=== PATIENT | female | born 1950 | race Caucasian/White ===

== ENCOUNTER 2020-12-03 23:59 | Emergency (ER) | payer MEDICARE, OTHER ==
[~2020-12-03 23:59] MED LIST: ADVAIR 500-501 EACH INH; ALPRAZOLAM0.5 MG PO; ASPIRIN EC81 MG PO; CATAPRES 0.1MG0.1 MG PO; DALIRESP500 MCG PO; DULERA 200 MCG8.8 GM INH; EFFEXOR XR 150150 MG PO; FLONASE 0.05% N16 GM; HABITROL 21 MG P1 EA TD; IPRAT-ALBUT 0.5-3 ML INH; KENALOG CREAM 015 GM TOP; LEVALBUTER1.25 MG/3 NEB; MEDROL DOSEPAK 24 MG PO; MIRALAX17 GM PO; NEURONTIN 400400 MG PO; NORVASC2.5 MG PO; PREDNISONE 10 M10 MG GT; PREDNISONE 10 M10 MG PO; PREDNISONE10 MG PO; PROTONIX40 MG PO; REQUIP0.5 MG PO; ROPINIROLE HCL1 MG PO; SEROQUEL100 MG PO; SINGULAIR10 MG PO; SPIRIVA18 MCG INH; TOPROL XL 50 MG50 MG PO; TOPROL XL100 MG PO; TRELEGY INH; TYLENOL 325MG325 MG PO; VENTOLIN HFA 66.7 GM INH; VENTOLIN/PROVE0.5 ML INH; VERAMYST10 GM; VIBRAMYCIN100 MG PO; VISTARIL25 MG PO; VITAMIN B-121000 MCG PO; VITAMIN D250000 UNIT PO; ZESTRIL20 MG PO; ZITHROMAX250 MG PO
[2020-12-04 00:45] LABS: HEMOGLOBIN 10.5 gm/dl (12.3-15.3); RED BLOOD COUNT 3.39 M/UL (4.00-5.10); WHITE BLOOD COUNT 6.3 K/UL (4.5-11.0)
[2020-12-04 01:01] LABS: BUN/CREATININE RATIO 28 (0-10)
[2020-12-04] MEDS ORDERED: MEDROL DOSEPAK 24 MG PO (02:50)
== END 2020-12-04 03:04 | disposition home or self-care (01) ==
LOC: ER1 23:59
PROVIDERS: Emergency Medicine
DX: J44.1 Chronic obstructive pulmonary disease with (acute) exacerbation (principal); I11.9 Hypertensive heart disease without heart failure; Z20.822 Contact with and (suspected) exposure to COVID-19; Z79.899 Other long term (current) drug therapy
CPT/HCPCS: 0240U; 71045; 80053; 82550; 82553; 83605; 83690; 84484; 85025; 85610; 85730; 93005; 94640; 94664; 94760; 96374; 99284; J2930

== ENCOUNTER 2021-11-26 16:46 | Inpatient (IN) | payer MEDICARE, OTHER ==
[~2021-11-26] VITALS: Ht 167.6 cm; Wt 55.1 kg
[~2021-11-26 16:46] MED LIST changes: -LEVALBUTER1.25 MG/3 NEB; -NORVASC2.5 MG PO; -ROPINIROLE HCL1 MG PO; -TRELEGY INH
[2021-11-26 18:02] LABS: HEMOGLOBIN 12.6 gm/dl (12.3-15.3); RED BLOOD COUNT 4.21 M/UL (4.00-5.10); WHITE BLOOD COUNT 4.1 K/UL (4.5-11.0)
[2021-11-26 18:38] LABS: BUN/CREATININE RATIO 12 (0-10)
[2021-11-27] MEDS ORDERED: ROPINIROLE HCL2 MG PO (00:19)
[2021-11-27] MEDS ORDERED: IPRAT-ALBUT 0.5-3 ML INH (01:41)
--- NOTE | 2021-11-27 01:44 | NUR ---
CROCHETER ATTEMPTED TO CALL NUMBER LISTED "PERSON TO NOTIFY" CANDY ANDREWS WITH NO SUCCESS. PT IS CONFUSED AT THIS TIME AND NOT ABLE TO APPROPRIATELY ANSWER ADMISSION QUESTIONS. ADMISSION NOT ABLE TO BE COMPLETED AT THIS TIME. WILL NOTIFY PRIMARY RN OF SITUATION.
--- NOTE | 2021-11-27 01:50 | NUR ---
PATIENT IS CONFUSED AT THIS TIME AND UNABLE TO ANSWER ADMISSION QUESTIONS. SALES AND SERVICE TECHNICIAN HAS ATTEMPTED TO CONTACT THE PATIENT'S LISTED PERSON TO NOTIFY WITH NO SUCCESS. WILL CONTINUE TO REASSES THE PATIENT'S MENTAL STATUS AND ATTEMPT TO DO THE ADMISSION. WILL COMPLETE ANOTHER CALL TO THE PERSON TO NOTIFY. IF UNABLE TO DO ADMISSION PART 1, WILL PASS INFORMATION ON TO ONCOMING NURSE.
[2021-11-27] MEDS ORDERED: CATAPRES 0.1MG0.1 MG PO (01:56)
--- NOTE | 2021-11-27 03:07 | NUR ---
PATIENT WAS UNABLE TO VOID WITH DISTENDED BLADDER. BLADDER SCAN SHOWS MORE THAN [id number]. CALLED DR. TOTH AND GOT ORDER TO ANCHOR RAMOS CATHETER. ON INSERTION, 800 MLS DRAINED IMMEDIATELY. RAMOS CLAMPED FOR NOW, WILL UNCLAMP IN 30 MINUTES
[2021-11-27 06:05] LABS: HEMOGLOBIN 12.5 gm/dl (12.3-15.3); RED BLOOD COUNT 4.2 M/UL (4.00-5.10); WHITE BLOOD COUNT 3.8 K/UL (4.5-11.0)
[2021-11-27 06:34] LABS: BUN/CREATININE RATIO 6 (0-10)
[2021-11-27] MEDS ORDERED: SINGULAIR10 MG PO (13:54)
[2021-11-27] MEDS ORDERED: HYDROXYZINE HCL25 MG PO (16:29)
[2021-11-27] MEDS ORDERED: LASIX20 MG PO (16:30)
[2021-11-27] MEDS ORDERED: TRELEGY ELLIPT1 EACH INH (17:26)
[2021-11-27] MEDS ORDERED: NORVASC5 MG PO (17:29)
[2021-11-29 03:19] LABS: BUN/CREATININE RATIO 23 (0-10)
[2021-11-29] MEDS ORDERED: METOPROLOL SUCC25 MG PO (09:46)
[2021-11-29] MEDS ORDERED: NICOTINE PATCH1 EACH TD (09:49)
== END 2021-11-29 12:31 | disposition home or self-care (01) | DRG 189 ==
LOC: ER1 16:46 → CDU 21:00 → M/S 21:00 → PROG CARE 21:00 → M/S 11-27 00:48 → PROG CARE 11-27 19:12
PROVIDERS: Emergency Medicine; Internal Medicine Infectious Disease; ADMIT Internal Medicine
PROC: 5A09357 Assistance with Respiratory Ventilation, Less than 24 Consecutive Hours, Continuous Positive Airway Pressure (ICD-10-PCS; 2021-11-26)
PROC: B24BZZZ Ultrasonography of Heart with Aorta (ICD-10-PCS; principal; 2021-11-28)
DX: J96.21 Acute and chronic respiratory failure with hypoxia (principal); G92.8 Other toxic encephalopathy; I31.3 Pericardial effusion (noninflammatory); E87.1 Hypo-osmolality and hyponatremia; I50.20 Unspecified systolic (congestive) heart failure; Z20.822 Contact with and (suspected) exposure to COVID-19; M06.9 Rheumatoid arthritis, unspecified; M79.7 Fibromyalgia; K57.90 Diverticulosis of intestine, part unspecified, without perforation or abscess without bleeding; R53.81 Other malaise; J44.9 Chronic obstructive pulmonary disease, unspecified; K21.9 Gastro-esophageal reflux disease without esophagitis; F41.9 Anxiety disorder, unspecified; G25.81 Restless legs syndrome; F17.210 Nicotine dependence, cigarettes, uncomplicated; E55.9 Vitamin D deficiency, unspecified; I11.0 Hypertensive heart disease with heart failure; J96.22 Acute and chronic respiratory failure with hypercapnia; Z99.81 Dependence on supplemental oxygen; Z98.51 Tubal ligation status; Z98.890 Other specified postprocedural states; Z98.49 Cataract extraction status, unspecified eye; Z79.899 Other long term (current) drug therapy; Z71.6 Tobacco abuse counseling
CPT/HCPCS: ECHO; 36415; 36600; 71045; 80048; 80053; 81001; 82550; 82553; 82803; 83605; 83735; 84100; 84484; 85025; 87040; 87086; 93306; 94640; 94660; 94760; 96365; 96366; 96375; 99285; J0456; J0696; J1100; J1650; J1940; J2060; J2270; J7030; U0002